=== PATIENT | female | born 1980 | race Caucasian/White ===

== ENCOUNTER → 2018-12-13 08:03 | Outpatient (CLI) | payer BC, SELFPAY ==
--- NOTE | 2018-12-13 | DI.MG.S_ITS ---
BILATERAL DIGITAL SCREENING MAMMOGRAM 3D/2D WITH CAD: 12/13/2018 CLINICAL: Baseline exam. Routine screening. Family history of breast cancer. No prior exams were available for comparison. The tissue of both breasts is heterogeneously dense. This may lower the sensitivity of mammography. Current study was also evaluated with a Computer Aided Detection (CAD) system. There is an oval asymmetry and irregular asymmetry in the right breast anterior depth inner region seen on the craniocaudal view only. Finding is best noted on tomographic CC slice 29. There also is possible architectural distortion in the right breast lower outer aspect middle depth. Finding is best noted on tomographic CC slice 18 and MLO slice 24. There are 2 adjacent oval asymmetries in the left breast anterior depth central to the nipple seen on the mediolateral oblique view only. Findings are best noted on tomographic MLO slice 33. IMPRESSION: INCOMPLETE: NEEDS ADDITIONAL IMAGING EVALUATION 1) The oval and irregular asymmetries in the right breast anterior depth inner region seen on the craniocaudal view only are indeterminate. Additional views with possible ultrasound are recommended. 2) The possible architectural distortion in the right breast lower outer aspect middle depth is indeterminate. Additional views with possible ultrasound are recommended. 3) The 2 adjacent oval asymmetries in the left breast anterior depth central to the nipple seen on the mediolateral oblique view only are indeterminate. Additional views with possible ultrasound are recommended. This exam was interpreted at Station ID: [id number]. NOTE: For mammograms, a report in lay terms will be sent to the patient. Approximately 15% of breast malignancies will not be visualized mammographically. In the management of a palpable breast mass, a negative mammogram must not discourage biopsy of a clinically suspicious lesion. Electronically Signed By: Davin Christina M.D. ecl/:12/13/2018 10:03:36 letter sent: Additional Imaging Needed ACR BI-RADS Category 0: Incomplete 3340F
== END ==
PROVIDERS: Visit Provider Physician Assistant Medical
DX: Z12.31 Encounter for screening mammogram for malignant neoplasm of breast (principal); Z80.3 Family history of malignant neoplasm of breast
CPT/HCPCS: 77063; 77067

== ENCOUNTER → 2018-12-25 08:07 | Outpatient (CLI) | payer BC, SELFPAY ==
--- NOTE | 2018-12-25 | DI.US.S_ITS ---
ULTRASOUND OF LEFT BREAST: 12/25/2018 CLINICAL: Patient returns today to evaluate 2 densities in the right breast. Comparison is made to exam dated: 12/13/2018 [facility]. Color flow and real-time ultrasound of the left breast were performed. Pereira scale images of the real-time examination were reviewed. There is a dilated duct in the left breast central to the nipple in the retroareolar region. This dilated duct displays internal echoes. This correlates with mammography findings. Color flow imaging demonstrates that there is no vascularity present. IMPRESSION: PROBABLY BENIGN The dilated duct in the left breast is consistent with duct ectasia or debris and is probably benign. A follow-up ultrasound in 6 months is recommended. A follow-up left ultrasound in 6 months is recommended to demonstrate stability. This exam was interpreted at Station ID: [id number]. Electronically Signed By: Maksim Nicolas M.D. aty/:12/25/2018 12:00:26 letter sent: Followup Recommended Ultrasound BI-RADS: 3 Probably benign
--- NOTE | 2018-12-25 | DI.MG.S_ITS ---
BILATERAL DIGITAL DIAGNOSTIC MAMMOGRAM 3D/2D WITH ADDITIONAL VIEWS: 12/25/2018 CLINICAL: Additional evaluation requested from prior study. Comparison is made to exam dated: 12/13/2018 [facility]. The tissue of both breasts is heterogeneously dense. This may lower the sensitivity of mammography. There is an oval equal density asymmetry in the right breast at 3 o'clock anterior depth. This is seen in additional views and is not significantly changed. There also is an asymmetry in the right breast at 8 o'clock anterior depth which appears less prominent and not visualized on the lateral view, previously noted possible architectural distortion is not as conspicuous. There is a prominent duct in the left breast central to the nipple in the retroareolar region. This is seen in additional views. This is not significantly changed compared to recent screening mammogram. No other significant masses or calcifications are seen in either breast. IMPRESSION: INCOMPLETE: NEEDS ADDITIONAL IMAGING EVALUATION The oval equal density asymmetry in the right breast at 3 o'clock anterior depth is indeterminate. An ultrasound is recommended. The subtle asymmetry in the right breast at 8 o'clock anterior depth is less conspicuous, but remaiins indeterminate. An ultrasound is recommended. The duct in the left breast central to the nipple in the retroareolar region is indeterminate. An ultrasound is recommended. This exam was interpreted at Station ID: [id number]. NOTE: For mammograms, a report in lay terms will be sent to the patient. Approximately 15% of breast malignancies will not be visualized mammographically. In the management of a palpable breast mass, a negative mammogram must not discourage biopsy of a clinically suspicious lesion. Electronically Signed By: Maksim Nicolas M.D. aty/:12/25/2018 11:58:18 ACR BI-RADS Category 0: Incomplete 3340F
--- NOTE | 2018-12-25 | DI.US.S_ITS ---
ULTRASOUND OF RIGHT BREAST: 12/25/2018 CLINICAL: Patient returns today to evaluate densities in the right breast. No prior exams were available for comparison. Color flow and real-time ultrasound of the right breast were performed. Pereira scale images of the real-time examination were reviewed. There is 0.7 cm x 0.3 cm x 0.7 cm oval mass with a circumscribed margin in the right breast at 2 o'clock middle depth 4 cm from the nipple with the long axis parallel to the skin. This oval mass is hypoechoic with a well-defined boundary. Color flow imaging demonstrates that there is no vascularity present. There also is 0.8 cm x 0.4 cm x 0.7 cm oval mass with a circumscribed margin in the right breast at 3 o'clock anterior depth 4 cm from the nipple with the long axis parallel to the skin. This oval mass is hypoechoic with a well-defined boundary. Color flow imaging demonstrates that there is no vascularity present. Additionally, there is a benign 0.4 cm oval cyst in the right breast at 8 o'clock posterior depth 10 cm from the nipple. This oval cyst is anechoic. Color flow imaging demonstrates that there is no vascularity present. IMPRESSION: PROBABLY BENIGN The 0.7 cm x 0.3 cm x 0.7 cm oval mass in the right breast at 2 o'clock middle depth likely represents clustered cysts or a complicated cyst and is probably benign. Follow-up mammogram and ultrasound in 6 months is recommended. The 0.8 cm x 0.4 cm x 0.7 cm oval mass in the right breast at 3 o'clock anterior depth likely represents clustered cysts or a complicated cyst and is probably benign. Follow-up mammogram and ultrasound in 6 months is recommended. The 0.4 cm oval cyst in the right breast at 8 o'clock posterior depth is consistent with a simple cyst and is benign. A follow-up right mammogram and an ultrasound in 6 months is recommended to demonstrate stability. This exam was interpreted at Station ID: [id number]. Electronically Signed By: Maksim Nicolas M.D. aty/:12/25/2018 12:07:46 letter sent: Followup Recommended Ultrasound BI-RADS: 3 Probably benign
== END ==
PROVIDERS: PCP Physician Assistant Medical; Visit Provider Physician Assistant Medical
DX: R92.8 Other abnormal and inconclusive findings on diagnostic imaging of breast (principal); N63.12 Unspecified lump in the right breast, upper inner quadrant; N60.01 Solitary cyst of right breast; N60.42 Mammary duct ectasia of left breast
CPT/HCPCS: 76642; 77066; G0279

== ENCOUNTER → 2019-08-27 09:20 | Outpatient (CLI) | payer BC, SELFPAY ==
--- NOTE | 2019-08-27 | DI.US.S_ITS ---
LIMITED ULTRASOUND OF LEFT BREAST: 08/27/2019 CLINICAL: 6 month follow-up left breast. Comparison is made to exams dated: 12/25/2018 mammogram, 12/25/2018 ultrasound, and 12/13/2018 mammogram - [facility]. Color flow and real-time ultrasound of the left breast retroareolar were performed. Pereira scale images of the real-time examination were reviewed. There is a benign dilated duct amidst generalized ductal ectasia in the left breast central to the nipple in the retroareolar region. No solid intraductal masses or significant internal debris. Color flow imaging demonstrates that there is no vascularity present. IMPRESSION: BENIGN There is no sonographic evidence of malignancy. The dilated ducts in the left breast are benign. Return to annual mammogram screening schedule is recommended. Findings and recommendations were conveyed to the patient at time of exam. This exam was interpreted at Station ID: [id number]. Electronically Signed By: Martha knott/:08/27/2019 11:36:35 letter sent: Normal Exam Ultrasound BI-RADS: 2 Benign
--- NOTE | 2019-08-27 | DI.MG.S_ITS ---
UNILATERAL RIGHT DIGITAL DIAGNOSTIC MAMMOGRAM 3D/2D SHORT-TERM FOLLOW-UP: 08/27/2019 CLINICAL: Patient returns for a 6 month follow up of the right breast. Comparison is made to exams dated: 12/25/2018 mammogram and 12/13/2018 mammogram - [facility]. The tissue of right breast is heterogeneously dense. This may lower the sensitivity of mammography. There is an oval equal density asymmetry in the right breast at 3 o'clock anterior depth. This is seen in additional views. This is not significantly changed. There also is an asymmetry in the right breast central to the nipple anterior depth. This is not significantly changed. No other significant masses or calcifications are seen in the breast. IMPRESSION: INCOMPLETE: NEEDS ADDITIONAL IMAGING EVALUATION The oval equal density asymmetry in the right breast at 3 o'clock anterior depth is stable. An ultrasound is recommended for confirmation. The asymmetry in the right breast central to the nipple anterior depth is also stable. An ultrasound is recommended for confirmation. Ultrasound of both areas was performed immediately following this exam. This exam was interpreted at Station ID: [id number]. NOTE: For mammograms, a report in lay terms will be sent to the patient. Approximately 15% of breast malignancies will not be visualized mammographically. In the management of a palpable breast mass, a negative mammogram must not discourage biopsy of a clinically suspicious lesion. Electronically Signed By: Martha knott/:08/27/2019 11:08:11 ACR BI-RADS Category 0: Incomplete 3340F
--- NOTE | 2019-08-27 | DI.US.S_ITS ---
LIMITED ULTRASOUND OF RIGHT BREAST: 08/27/2019 CLINICAL: 6 month follow-up of right breast. Comparison is made to exams dated: 08/27/2019 mammogram, 12/25/2018 ultrasound, 12/25/2018 mammogram, and 12/13/2018 mammogram - [facility]. Color flow and real-time ultrasound of the right breast 2-3 o'clock region were performed. Pereira scale images of the real-time examination were reviewed. There is a benign 0.8 cm x 0.3 cm x 0.5 cm oval mass with a circumscribed margin in the right breast at 2 o'clock middle depth 4 cm from the nipple with the long axis parallel to the skin. This oval mass is hypoechoic with a well-defined boundary. This abnormality is not significantly changed. Color flow imaging demonstrates that there is no vascularity present. There also is a stable benign 0.6 cm x 0.4 cm x 0.6 cm oval mass with a circumscribed margin in the right breast at 3 o'clock anterior depth 4 cm from the nipple with the long axis parallel to the skin. This oval mass is hypoechoic with a well-defined boundary. Color flow imaging demonstrates that there is no vascularity present. IMPRESSION: BENIGN There is no sonographic evidence of malignancy. The 0.8 cm oval cystic cluster in the right breast at 2 o'clock middle depth is stable and is benign. The similar appearing, stable 0.6 cm oval cystic cluster in the right breast at 3 o'clock anterior depth and is benign. Return to annual mammogram screening schedule is recommended. Findings and recommendations were conveyed to the patient at time of exam. This exam was interpreted at Station ID: [id number]. Electronically Signed By: Martha knott/:08/27/2019 11:42:40 letter sent: Normal Exam Ultrasound BI-RADS: 2 Benign
== END ==
PROVIDERS: PCP Physician Assistant Medical; Visit Provider Physician Assistant Medical
DX: R92.8 Other abnormal and inconclusive findings on diagnostic imaging of breast (principal); N64.89 Other specified disorders of breast; N60.42 Mammary duct ectasia of left breast
CPT/HCPCS: 76642; 77065; G0279

== ENCOUNTER → 2020-06-23 11:08 | Outpatient (CLI) | payer BC, SELFPAY ==
--- NOTE | 2020-06-23 | DI.MG.S_ITS ---
BILATERAL DIGITAL SCREENING MAMMOGRAM 3D/2D WITH CAD: 06/23/2020 CLINICAL: Routine screening. Family history of breast cancer. Comparison is made to exams dated: 12/25/2018 mammogram and 12/13/2018 mammogram - [facility]. The tissue of both breasts is heterogeneously dense. This may lower the sensitivity of mammography. Current study was also evaluated with a Computer Aided Detection (CAD) system. There is an oval asymmetry in the right breast middle depth lateral region seen on the craniocaudal view only. This is more prominent. There is architectural distortion associated with the asymmetry. No other significant masses, calcifications, or other findings are seen in either breast. IMPRESSION: INCOMPLETE: NEEDS ADDITIONAL IMAGING EVALUATION The oval asymmetry in the right breast is indeterminate. Additional views with possible ultrasound are recommended. This exam was interpreted at Station ID: [id number]. NOTE: For mammograms, a report in lay terms will be sent to the patient. Approximately 15% of breast malignancies will not be visualized mammographically. In the management of a palpable breast mass, a negative mammogram must not discourage biopsy of a clinically suspicious lesion. Electronically Signed By: Martha knott/oriana:06/23/2020 15:51:47 letter sent: Additional Imaging Needed ACR BI-RADS Category 0: Incomplete 3340F
== END ==
PROVIDERS: PCP Physician Assistant Medical; Referring Provider Physician Assistant Medical; Visit Provider Physician Assistant Medical
DX: Z12.31 Encounter for screening mammogram for malignant neoplasm of breast (principal); Z80.3 Family history of malignant neoplasm of breast
CPT/HCPCS: 77063; 77067

== ENCOUNTER → 2020-07-15 09:17 | Outpatient (CLI) | payer BC, SELFPAY ==
--- NOTE | 2020-07-15 | DI.US.S_ITS ---
ULTRASOUND OF RIGHT BREAST: 07/15/2020 CLINICAL: Patient returns today to evaluate a focal asymmetry in the right breast. Comparison is made to exams dated: 07/15/2020 mammogram, 06/23/2020 mammogram, 08/27/2019 ultrasound, 08/27/2019 ultrasound, 08/27/2019 mammogram, and 12/25/2018 ultrasound - [facility]. Color flow and real-time ultrasound of the right breast were performed. Pereira scale images of the real-time examination were reviewed. There are approximately 4 cysts measuring between 3mm and 6mm in the lateral right breast near the 8 o'clock and 9 o'clock position, 9 cm from the nipple. These cysts are near anechoic without internal vascularity. Some may have a little bit of internal echogenic debris. These likely do not correlate with the mammographic findings of interest. Otherwise, no other sonographic abnormalities are seen in the right breast. IMPRESSION: INCOMPLETE: NEEDS ADDITIONAL IMAGING EVALUATION There is no abnormality seen in the right breast to correspond with the asymmetry described at the middle depth in the upper outer quadrant with minimal architetural distortion. This has been previously evaluated over time and has not had any sonographic correlates. However, this finding has demonstrated increased prominence on this years mammogram and still without a sonographic correlate. A breast MRI is recommended to further characterize Additionally, recommend 6-month follow up right mammogram and ultrasound to evaluate for stability of the cluster of 3mm-6mm cysts in the right breast near the 8-9 o'clock position. Findings and recommendations were conveyed with the patient during today's visit. This exam was interpreted at Station ID: [id number]. Electronically Signed By: Maksim Nicolas M.D. aty/:07/15/2020 11:50:42 letter sent: Need MRI Ultrasound BI-RADS: 0 Indeterminate
--- NOTE | 2020-07-15 | DI.MG.S_ITS ---
UNILATERAL RIGHT DIGITAL DIAGNOSTIC MAMMOGRAM 3D/2D WITH ADDITIONAL VIEWS: 07/15/2020 CLINICAL: Additional evaluation requested from prior study. Comparison is made to exams dated: 06/23/2020 mammogram, 08/27/2019 mammogram, 12/25/2018 mammogram, and 12/13/2018 mammogram - [facility]. The tissue of right breast is heterogeneously dense. This may lower the sensitivity of mammography. There is an asymmetry in the right breast middle depth lateral region seen on the craniocaudal view only which appears more prominent and demonstrates mild architectural distortion. This area was previously evaluated and had no sonographic abnormalities on prior imaging. No other significant masses or calcifications are seen in the breast. IMPRESSION: INCOMPLETE: NEEDS ADDITIONAL IMAGING EVALUATION The asymmetry in the lateral aspect of the right breast seen on craniocaudal view only is indeterminate. An ultrasound is recommended for further evaluation and is scheduled to immediately follow this study. This exam was interpreted at Station ID: [id number]. NOTE: For mammograms, a report in lay terms will be sent to the patient. Approximately 15% of breast malignancies will not be visualized mammographically. In the management of a palpable breast mass, a negative mammogram must not discourage biopsy of a clinically suspicious lesion. Electronically Signed By: Maksim Nicolas M.D. aty/:07/15/2020 11:17:45 ACR BI-RADS Category 0: Incomplete 3340F
== END ==
PROVIDERS: PCP Physician Assistant Medical; Referring Provider Physician Assistant Medical; Visit Provider Physician Assistant Medical
DX: R92.8 Other abnormal and inconclusive findings on diagnostic imaging of breast (principal); N64.89 Other specified disorders of breast; N60.01 Solitary cyst of right breast
CPT/HCPCS: 76642; 77065; G0279

== ENCOUNTER → 2020-08-18 13:34 | Outpatient (CLI) | payer BC, SELFPAY ==
--- NOTE | 2020-08-18 | DI.MRI.S_ITS ---
BREAST MRI OF BOTH BREASTS: 08/18/2020 CLINICAL: Abnormal and inconclusive findings on mammo. PROCEDURE: MR BREAST BI WO/W CON INDICATIONS: Other abnormal and inconclusive findings on diagnostic Mammo. Right TECHNIQUE: The patient was placed prone in a dedicated breast imaging coil. Precontrast axial STIR and 3D FLASH without fat saturation sequences were obtained. Both before and after bolus injection of contrast, sequential 1-minute axial 3D FLASH with fat saturation sequences for 3 time points, with subtraction images and maximum intensity projections (MIP's) generated. Delayed sagittal FLASH images with fat saturation were also obtained. Computer-aided detection, including computer algorithm analysis of MRI image data for lesion detection and characterization, pharmacokinetic analysis, with further physician review for interpretation, was performed. IV CONTRAST: 20 cc ProHance IV contrast utilized. COMPARISON: [facility], , US BREAST RT LIMITED, 07/15/2020, 10:45. [facility], MM SPECIAL VIEW RT, 07/15/2020, 9:36. [facility], MM SCREENING MAMMO BI, 06/23/2020, 11:25. [facility], US BREAST LT LIMITED, 08/27/2019, 11:20. [facility], MM DIAGNOSTIC MAMMO UNILAT RT, 08/27/2019, 9:59. FINDINGS: Image quality: Excellent. There is moderate background parenchymal enhancement. Right breast: No mass or suspicious enhancement. There are several small T2 hyperintense cysts in the inferior medial right breast measuring up to 8 mm in size. No definite corresponding abnormality to the asymmetry in the lateral breast with possible architectural distortion. Left breast: No mass or suspicious enhancement. There are a few T2 hyperintense cysts. A larger cyst in the subareolar lateral left breast measures 16 mm in length. This corresponds to the previously seen benign dilated duct on ultrasound 08/27/2019. Adjacent cyst measuring up to 25 mm. No suspicious enhancement. Miscellaneous: No enlarged lymph nodes. IMPRESSION: PROBABLY BENIGN 1. Right breast: No suspicious mass or enhancement. No corresponding abnormality to the asymmetry with possible architectural distortion seen on mammogram. A few nonenhancing cysts. 2. Left breast: No mass or suspicious enhancement. A few nonenhancing cysts. 3. Axilla: No enlarged lymph nodes. BIRADS 3. -Recommend continued follow-up of the right breast asymmetry and complicated cysts to demonstrate long-term stability. COMMENT: The imaging literature indicates that a negative contrast breast MRI examination has a high sensitivity and a moderate specificity for detecting and excluding invasive carcinomas to a detection threshold of 3-5 mm; nonetheless, appropriate clinical and mammographic follow-up are recommended. MRI is not sensitive for detecting DCIS (ductal carcinoma in situ) and may not detect large invasive neoplasms that show only minimal enhancement such as mucinous carcinoma. If there are suspicious calcifications or clinically worrisome palpable masses, then biopsy should still be considered. Invasive neoplasms can be hidden by co-existent and benign enhancement caused by mastitis, hormone therapy effects, radiation therapy, , and recent biopsy or surgery. False positive examinations can occur in a number of circumstances, including breasts that have recently been subject to invasive procedures and those that contain atypical ductal hyperplasia, hormonally stimulated glandular tissue, fat necrosis, or radial scars. Dictated by: Rafat Thompson M.D. on 08/18/2020 at 18:31 This exam was interpreted at Station ID: [id number]. Electronically Signed By: Rafat Thompson M.D. slc/:08/19/2020 08:00:20 letter sent: Followup Recommended ACR BI-RADS Category 3: Probably benign [id number]
== END ==
PROVIDERS: PCP Physician Assistant Medical; Referring Provider Physician Assistant Medical; Visit Provider Physician Assistant Medical
DX: R92.8 Other abnormal and inconclusive findings on diagnostic imaging of breast (principal); N60.01 Solitary cyst of right breast; N60.02 Solitary cyst of left breast
CPT/HCPCS: 77049; A9579

== ENCOUNTER → 2021-02-23 12:55 | Outpatient (CLI) | payer BC, SELFPAY ==
--- NOTE | 2021-02-23 | DI.US.S_ITS ---
LIMITED ULTRASOUND OF RIGHT BREAST: 02/23/2021 CLINICAL: Patient returns today to evaluate focal asymmetries in the right breast. Comparison is made to exams dated: 02/23/2021 mammogram, 08/18/2020 breast MRI, 07/15/2020 ultrasound, 07/15/2020 mammogram, 06/23/2020 mammogram, and 08/27/2019 [facility]. Color flow and real-time ultrasound of the right breast were performed on the areas of interest. There is a 0.3 cm x 0.2 cm x 0.2 cm oval cyst in the right breast at 8 o'clock middle depth 9 cm from the nipple. This oval cyst is hypoechoic with a well-defined boundary, internal echoes, and posterior acoustic enhancement. This abnormality is decreased in size. Color flow imaging demonstrates that there is no vascularity present. There also is a 3 cm x 0.9 cm x 2.7 cm cluster of irregular cysts with a septated internal wall in the right breast at 8 o'clock anterior depth 8 cm from the nipple. This cluster of irregular cysts is hypoechoic with posterior acoustic enhancement. Color flow imaging demonstrates that there is no increase in vascularity. This may correlate with the mammographic finding. Additionally, there is a stable benign 0.5 cm x 0.4 cm x 0.4 cm oval cyst in the right breast at 8 o'clock middle depth. This oval cyst is anechoic with a well-defined boundary and posterior acoustic enhancement. Color flow imaging demonstrates that there is no vascularity present. In addition, there is a benign 0.5 cm x 0.5 cm x 0.4 cm oval cyst in the right breast at 9 o'clock middle depth 9 cm from the nipple. This oval cyst is anechoic with a well-defined boundary and posterior acoustic enhancement. Color flow imaging demonstrates that there is no vascularity present. IMPRESSION: PROBABLY BENIGN The 0.3 cm x 0.2 cm x 0.2 cm oval cyst in the right breast at 8 o'clock middle depth is consistent with a complicated cyst and is probably benign. A follow-up ultrasound in 6 months is recommended. The 3 cm x 0.9 cm x 2.7 cm cluster of irregular cysts in the right breast at 8 o'clock anterior depth is probably benign. Follow-up mammogram and ultrasound in 6 months is recommended. The stable 0.5 cm x 0.4 cm x 0.4 cm oval cyst in the right breast at 8 o'clock middle depth is consistent with a simple cyst and is benign. The 0.5 cm x 0.5 cm x 0.4 cm oval cyst in the right breast at 9 o'clock middle depth is consistent with a simple cyst and is benign. A follow-up mammogram and an ultrasound in 6 months are recommended to demonstrate stability. This exam was interpreted at Station ID: [id number]. Electronically Signed By: Travis hinojosa/:02/23/2021 15:22:32 letter sent: Followup Recommended Ultrasound BI-RADS: 3 Probably benign
--- NOTE | 2021-02-23 | DI.MG.S_ITS ---
UNILATERAL RIGHT DIGITAL DIAGNOSTIC MAMMOGRAM 3D/2D SHORT-TERM FOLLOW-UP: 02/23/2021 CLINICAL: Short term follow up. Comparison is made to exams dated: 08/18/2020 breast MRI, 06/23/2020 mammogram, 08/27/2019 mammogram, 12/25/2018 mammogram, and 12/13/2018 mammogram - [facility]. The tissue of right breast is heterogeneously dense. This may lower the sensitivity of mammography. There is an oval equal density asymmetry with an indistinct margin in the right breast at 7 o'clock middle depth. This is not significantly changed. There is architectural distortion associated with the asymmetry. No other significant masses or calcifications are seen in the breast. IMPRESSION: INCOMPLETE: NEEDS ADDITIONAL IMAGING EVALUATION The oval equal density asymmetry in the right breast is indeterminate. An ultrasound is recommended. Ultrasound will be performed immediately following the current exam. This exam was interpreted at Station ID: [id number]. NOTE: For mammograms, a report in lay terms will be sent to the patient. Approximately 15% of breast malignancies will not be visualized mammographically. In the management of a palpable breast mass, a negative mammogram must not discourage biopsy of a clinically suspicious lesion. Electronically Signed By: Travis Rodriguez M.D. ddp/:02/23/2021 13:32:03 ACR BI-RADS Category 0: Incomplete 3340F
== END ==
PROVIDERS: PCP Physician Assistant Medical; Referring Provider Physician Assistant Medical; Visit Provider Physician Assistant Medical
DX: R92.8 Other abnormal and inconclusive findings on diagnostic imaging of breast (principal); N60.01 Solitary cyst of right breast
CPT/HCPCS: 76642; 77065; G0279

== ENCOUNTER → 2021-06-10 12:41 | Outpatient (CLI) | payer OTHER, SELFPAY ==
--- NOTE | 2021-06-10 | DI.MG.S_ITS ---
BILATERAL DIGITAL DIAGNOSTIC MAMMOGRAM 3D/2D: 06/10/2021 CLINICAL: Right breast pain. Comparison is made to exams dated: 02/23/2021 mammogram, 07/15/2020 mammogram, 06/23/2020 mammogram, 02/23/2021 ultrasound, 08/18/2020 breast MRI, and 07/15/2020 ultrasound - [facility]. The tissue of both breasts is heterogeneously dense. This may lower the sensitivity of mammography. There is an oval equal density asymmetry with an indistinct margin in the right breast at 7 o'clock middle depth. This is not significantly changed. There is architectural distortion associated with the asymmetry. No other significant masses, calcifications, or other findings are seen in either breast. IMPRESSION: INCOMPLETE: NEEDS ADDITIONAL IMAGING EVALUATION The oval equal density asymmetry in the right breast is indeterminate. An ultrasound is recommended. This exam was interpreted at Station ID: [id number]. NOTE: For mammograms, a report in lay terms will be sent to the patient. Approximately 15% of breast malignancies will not be visualized mammographically. In the management of a palpable breast mass, a negative mammogram must not discourage biopsy of a clinically suspicious lesion. Electronically Signed By: Cliff rod/oriana:06/10/2021 14:57:51 ACR BI-RADS Category 0: Incomplete 3340F
--- NOTE | 2021-06-10 | DI.US.S_ITS ---
LIMITED ULTRASOUND OF RIGHT BREAST: 06/10/2021 CLINICAL: Patient returns today to evaluate two focal asymmetries in the right breast. Comparison is made to exams dated: 06/10/2021 mammogram, 02/23/2021 ultrasound, 02/23/2021 mammogram, 08/18/2020 breast MRI, 07/15/2020 ultrasound, and 07/15/2020 mammogram - [facility]. Color flow ultrasound of the right breast was performed. Pereira scale images of the real-time examination were reviewed. There is a 0.3 cm x 0.3 cm x 0.2 cm oval cyst in the right breast at 8 o'clock middle depth 9 cm from the nipple. This oval cyst is hypoechoic with a well-defined boundary, internal echoes, and posterior acoustic enhancement. This abnormality is not significantly changed. There also is a 2.8 cm x 3.4 cm x 1.1 cm cluster of irregular cysts with a septated internal wall in the right breast at 8 o'clock anterior depth 8 cm from the nipple. This cluster of irregular cysts is hypoechoic with posterior acoustic enhancement. These abnormalities are not significantly changed. IMPRESSION: PROBABLY BENIGN The 0.3 cm x 0.3 cm x 0.2 cm oval cyst in the right breast at 8 o'clock middle depth is consistent with a complicated cyst and is probably benign. The 2.8 cm x 3.4 cm x 1.1 cm cluster of irregular cysts in the right breast at 8 o'clock anterior depth is probably benign. A follow-up right mammogram and an ultrasound in 6 months is recommended to demonstrate stability. This exam was interpreted at Station ID: [id number]. Electronically Signed By: Cliff rod/oriana:06/10/2021 15:12:43 letter sent: Followup Recommended Ultrasound BI-RADS: 3 Probably benign
== END ==
PROVIDERS: PCP Physician Assistant Medical; Referring Provider Physician Assistant Medical; Visit Provider Physician Assistant Medical
DX: R92.8 Other abnormal and inconclusive findings on diagnostic imaging of breast (principal); N64.4 Mastodynia; N60.01 Solitary cyst of right breast
CPT/HCPCS: 76642; 77066; G0279

== ENCOUNTER → 2021-10-14 12:55 | Outpatient (CLI) | payer OTHER, SELFPAY ==
--- NOTE | 2021-10-14 | DI.US.S_ITS ---
PROCEDURE: US OB <= 14 WEEKS FETUS INDICATIONS: ELECTIVE TERMINATION WITH RISING HCG OUTSIDE/PRIOR DATING DATA: Last menstrual period (LMP): Unknown. LMP-based estimated date of delivery (SONYA): Unknown. First dating scan (date and location): 10/14/21. Estimated date of delivery (SONYA) from first dating scan: 04/19/22. TECHNIQUE: Real-time scanning was performed of the fetus and maternal pelvic organs, with image documentation. Endovaginal scanning was also performed to better visualize the fetus and maternal ovaries. COMPARISON: None. FINDINGS: Embryo: Single living intrauterine fetus is present with a crown-rump length measuring 7.1 cm, 13 weeks 2 days. Perigestational hemorrhage measuring 2.0 x 0.73.3 cm. Heart rate: 149 beats per minute Measurement variability in dating: +/- 4 weeks by LMP, +/- 7 days by mean sac diameter (use before 6 weeks gestation if crown-rump length not able to be measured), +/- 5 days by crown-rump length (up to 8 weeks 6 days gestation), +/- 7 days by crown-rump length (up to 13 weeks 6 days gestation). Maternal organs: Ovaries not well seen bilaterally sonographically . IMPRESSION: Single living intrauterine fetus with a gestational age measuring 13 weeks 2 days. Perigestational hemorrhage as above. Dictated by: Aleksey Gallegos M.D. on 10/14/2021 at 16:42 Approved by: Aleksey Gallegos M.D. on 10/14/2021 at 16:44
== END ==
PROVIDERS: PCP Physician Assistant Medical; Referring Provider Nurse Practitioner Obstetrics & Gynecology; Visit Provider Nurse Practitioner Obstetrics & Gynecology
DX: O07.4 Failed attempted termination of pregnancy without complication (principal); O46.8X1 Other antepartum hemorrhage, first trimester; Z3A.13 13 weeks gestation of pregnancy
CPT/HCPCS: 76801; 76817

== ENCOUNTER → 2022-07-16 10:14 | Outpatient (CLI) | payer OTHER, SELFPAY ==
--- NOTE | 2022-07-16 10:16 | DI.US.S_ITS ---
ULTRASOUND OF RIGHT BREAST: 07/16/2022 CLINICAL: Patient returns for a 6 month follow up of the right breast. Comparison is made to exams dated: 07/16/2022 mammogram, 06/10/2021 ultrasound, 06/10/2021 mammogram, 02/23/2021 ultrasound, 02/23/2021 mammogram, and 08/18/2020 breast MRI - [facility]. Color flow and Doppler ultrasound of the right breast were performed on the areas of interest. Pereira scale images of the real-time examination were reviewed. There is a cluster of irregular complicated cysts with a septated internal wall in the right breast at 8 o'clock anterior depth. This cluster of irregular complicated cysts displays posterior acoustic enhancement. These abnormalities are decreased in size. IMPRESSION: SUSPICIOUS OF MALIGNANCY The cluster of irregular complicated cysts in the right breast is probably benign. 6 month follow-up ultrasound recommended. There is no sonographic abnormality seen in the right breast to correspond with the architectural distortion at 9 o'clock. Stereotactic biopsy is recommended. This exam was interpreted at Station ID: [id number]. SUMMARY: This was discussed with the patient by the radiologist Dr. Wolf at the time of the exam. Electronically Signed By: Irish cui/:07/16/2022 12:13:41 letter sent: Biopsy Required Ultrasound BI-RADS: 4a Low suspicion for malignancy
--- NOTE | 2022-07-16 10:29 | DI.MG.S_ITS ---
Procedure: MM diagnostic mammo BI BILATERAL DIGITAL DIAGNOSTIC MAMMOGRAM 3D/2D: 07/16/2022 CLINICAL: Short term follow up of the right breast, due for bilateral imaging. Comparison is made to exams dated: 06/10/2021 ultrasound, 06/10/2021 mammogram, 02/23/2021 ultrasound, and 06/23/2020 mammogram - [facility]. The tissue of both breasts is heterogeneously dense. This may lower the sensitivity of mammography. There is architectural distortion in the right breast at 9 o'clock middle depth. The previously described oval asymmetry in the right breast at 7 o'clock is no longer seen. No other significant masses, calcifications, or other findings are seen in either breast. IMPRESSION: INCOMPLETE: NEEDS ADDITIONAL IMAGING EVALUATION The architectural distortion in the right breast is indeterminate. A targeted ultrasound of the right breast is recommended and will be performed immediately following this exam. Additionally, the previously seen cluster of cysts in the right breeast at 7 o'clock will be evaluated. This exam was interpreted at Station ID: [id number]. NOTE: For mammograms, a report in lay terms will be sent to the patient. Approximately 15% of breast malignancies will not be visualized mammographically. In the management of a palpable breast mass, a negative mammogram must not discourage biopsy of a clinically suspicious lesion. Electronically Signed By: Irish Mendez M.D. Continued Report - Page 2 of 2 Patient Name: GORDON GAGNON date: 1980 Sex: F Attending Physician: Kilo Indications: Date: 07/16/2022 10:22 At the request of: BALBINA DILLON Procedure: MM diagnostic mammo BI lk/:07/16/2022 11:04:45 ACR BI-RADS Category 0: Incomplete 3340F
== END ==
PROVIDERS: PCP Physician Assistant Medical; Referring Provider Physician Assistant Medical; Visit Provider Physician Assistant Medical
DX: R92.8 Other abnormal and inconclusive findings on diagnostic imaging of breast (principal); N60.01 Solitary cyst of right breast
CPT/HCPCS: 76642; 77066; G0279